=== PATIENT | male | born 1965 | race American Indian/Alaskan Native ===

== ENCOUNTER 2018-03-06 18:30 | Emergency (ER) | payer BC ==
[2018-03-06 18:35] VITALS: BP 149/98
--- NOTE | 2018-03-06 22:15 | Emergency Department Report ---
ED Rash HPI - HPI Chief Complaint: Skin Rash Stated Complaint: RASH Time Seen by Provider: 03/06/18 21:16 Duration: 2 Days Location: Head (face near jones region) Rash Symptoms: Yes Itching, No Facial Swelling, No Tongue/Oral Swelling, No Breathing Difficulties, No Choking Sensation, No Wheezing/Dyspnea, No Peeling, No Blistering, No Fever, No Lightheaded, No Malaise, No Myalgias Severity: mild Other History: 52-year-old male past medical history diabetes, hyperlipidemia presents with complaint of circular itchy rash to jones region over the last 2 days. Patient denies fevers chills nausea vomiting disseminated rash fever or chills. Patient has visible circular slightly raised plaques along left cheek. Patient states that they feel irritated. Patient denies any recent travel any food allergies. Denies any recent travel in the [place]. ED Review of Systems ROS: Stated complaint: RASH Other details as noted in HPI Constitutional: denies: chills, fever Eyes: denies: eye pain, eye discharge, vision change ENT: denies: ear pain, throat pain Respiratory: denies: cough, shortness of breath, wheezing Cardiovascular: denies: chest pain, palpitations Endocrine: no symptoms reported Gastrointestinal: denies: abdominal pain, nausea, diarrhea Genitourinary: denies: urgency, dysuria Musculoskeletal: denies: back pain, joint swelling, arthralgia Skin: as per HPI, lesions. denies: rash Neurological: denies: headache, weakness, paresthesias Psychiatric: denies: anxiety, depression Hematological/Lymphatic: denies: easy bleeding, easy bruising ED Past Medical Hx - Past Medical History Hx Diabetes: Yes - Surgical History Past Surgical History?: No - Social History Smoking Status: Never Smoker Substance Use Type: None - Medications Home Medications: Home Medications Medication Instructions Recorded Confirmed Last Taken Type Fluconazole [Diflucan] 150 mg PO QWEEK #3 tablet 03/06/18 Unknown Rx Rash Exam - Exam General: Vital signs noted. No distress. Alert and acting appropriately. HEENT: No Periorbital Edema, No Conjuctival Injection, No Chemosis, No Perioral Edema, No Tongue Edema, No Uvular Edema, No Compromised Airway, No Drooling Lungs: Yes Good Air Exchange (Normal Breath Sounds), No Wheezes, No Ronchi, No Stridor, No Cough, No Labored Respirations, No Retractions, No Use of Accessory Muscles, No Other Abnormal Lung Sounds Heart: Yes Regular, No Murmur Skin: Yes Maculopapular Rash (circular raised scaly plaques on left side jones region), No Urticarial Rash, No Morbilliform rash, No Bulla(e), No Excoriations , No Weeping, No Tenderness, No Erythema, No Edema, No Encrustations, No Other Other: Positive: Abdomen Normal, Neurologic Normal, Musculoskeletal Normal ED Course Vital Signs 03/06/18 18:34 Temperature 97.3 F L Pulse Rate 91 H Respiratory 16 Rate Blood Pressure 149/98 O2 Sat by Pulse 97 Oximetry ED Medical Decision Making - Medical Decision Making A/P: Tinea Linh 1-based on clinical exam patient likely has fungal infection of skin near cheek and jones 2- [email or web address] 3-oral fluconazole 150mg once a week or 3 weeks 4- follow-up with dermatology Critical care attestation.: If time is entered above; I have spent that time in minutes in the direct care of this critically ill patient, excluding procedure time. ED Disposition Clinical Impression: Tinea barbae Disposition: DC-01 TO HOME OR SELFCARE Is pt being admited?: No Does the pt Need Aspirin: No Condition: Stable Instructions: Tinea Corporis (ED) Prescriptions: Fluconazole [Diflucan] 150 mg PO QWEEK #3 tablet Referrals: HILARIO PEÑA JR, MD [Primary Care Provider] - 3-5 Days [facility] [Provider Group] - 3-5 Days Time of Disposition: 22:15
== END 2018-03-06 22:23 | disposition home or self-care (01) ==
LOC: ED 18:30
DX: B35.0 Tinea barbae and tinea capitis (principal); E11.9 Type 2 diabetes mellitus without complications
CPT/HCPCS: 99282